=== PATIENT | male | born 1960 | race Asian ===

== ENCOUNTER 2021-10-07 10:30 | Inpatient (IN) ==
[2021-10-07] MEDS ORDERED: 0.9 % Sodium Chloride 1,000 ML ONE ×2 (10:54→12:10)
[2021-10-07] MEDS ORDERED: ISOVUE-370 200 ML INFUS..BTL ONE ×2 (11:43→12:11)
[2021-10-07] MEDS ORDERED: Naloxone 0.4 MG/ML INJ IVP PRN (12:00)
[2021-10-07] MEDS ORDERED: Perflutren Lipid Microsphere 1.3 ML in 0.9 % Sodium Chloride 8.7 ML IVP PRN (12:00)
[2021-10-07] MEDS ORDERED: *HR* FentaNYL (PF) 100 MCG/2 ML VIAL ONE (12:10)
[2021-10-07] MEDS ORDERED: *HR* Midazolam HCl 2 MG/2 ML VIAL ONE (12:10)
[2021-10-07] MEDS ORDERED: *HR* Heparin 10,000 UNIT/10 ML VIAL ONE (12:11)
[2021-10-07] MEDS ORDERED: Heparin 1,000 UNITS/500 mL 500 ML ONE (12:11)
[2021-10-07] MEDS ORDERED: Nitroglycerin 1,000 MCG/5 ML VIAL IV ONE (12:11)
[2021-10-07 13:53] LABS: Estimated Average Glucose 146 mg/dl; Hemoglobin A1C 6.7 %
[2021-10-07] MEDS: *HR* Heparin 5,000 UNIT/ML VIAL SQ SCH (16:56)
[2021-10-07] MEDS: *HR* Ticagrelor 90 MG TABLET PO SCH (20:10)
[2021-10-08 01:06] LABS: White Blood Count 11.4 K/mcL (4.3-11.1)
[2021-10-08 01:07] LABS: Basophils % 0.3 %; Eosinophils # 0.2 K/mcL (0.0-0.6); Eosinophils % 1.3 %; Hematocrit 42.6 % (37.5-50.1); Hemoglobin 14.3 g/dL (12.9-16.9); Immature Granulocytes % 0.3 % (0-4); Lymphocytes # 1.6 K/mcL (0.6-4.6); Lymphocytes % 13.5 %; Mean Corpuscular HGB Conc 33.6 g/dL (31.6-35.5); Mean Corpuscular Hemoglobin 28.4 pg (28.0-33.3); Mean Corpuscular Volume 84.7 fL (83.0-100.0); Mean Platelet Volume 9.8 fL (9.4-12.4); Monocytes # 1.1 K/mcL (0.0-1.3); Monocytes % 9.9 %; Neutrophils # 8.6 K/mcL (1.6-8.9); Platelet Count 227 K/mcL (140-400); Red Blood Count 5.03 M/mcL (4.19-5.50); Red Cell Distribution Width 12.8 % (11.5-14.5); Segmented Neutrophils % 74.7 %
[2021-10-08 01:28] LABS: BUN/Creatinine Ratio 8 (6-26); Blood Urea Nitrogen 7 mg/dL (8-23); Calcium 8.8 mg/dL (8.6-10.3); Carbon Dioxide 27 mEq/L (23-29); Chloride 104 mEq/L (98-107); Chol/HDL Ratio 6.2 (0-4.9); Cholesterol 237 mg/dL (< 200); Glucose 125 mg/dL (70-105); HDL Cholesterol 38 mg/dL (40-59); LDL Cholesterol,Calculated 173 mg/dL (< 100); Osmolality,Calculated 283 (280-300); Potassium 3.3 mEq/L (3.5-5.1); Sodium 137 mEq/L (136-145); Triglycerides 130 mg/dL (< 150); eGFR For African Americans > 60 (> 60); eGFR For Non-African Americans > 60 (> 60)
[2021-10-08] MEDS: *HR* Heparin 5,000 UNIT/ML VIAL SQ SCH ×2 (05:42→17:36)
[2021-10-08] MEDS: Aspirin 81 MG TAB.CHEW PO SCH (09:08)
[2021-10-08] MEDS: *HR* Ticagrelor 90 MG TABLET PO SCH ×2 (09:09→20:18)
[2021-10-09 03:04] LABS: Basophils % 0.5 %; Eosinophils # 0.3 K/mcL (0.0-0.6); Eosinophils % 3.1 %; Hematocrit 45.1 % (37.5-50.1); Hemoglobin 15.1 g/dL (12.9-16.9); Immature Granulocytes % 0.2 % (0-4); Lymphocytes # 1.8 K/mcL (0.6-4.6); Lymphocytes % 21.1 %; Mean Corpuscular HGB Conc 33.5 g/dL (31.6-35.5); Mean Corpuscular Hemoglobin 28.3 pg (28.0-33.3); Mean Corpuscular Volume 84.6 fL (83.0-100.0); Mean Platelet Volume 10.1 fL (9.4-12.4); Monocytes # 0.9 K/mcL (0.0-1.3); Monocytes % 10.6 %; Neutrophils # 5.4 K/mcL (1.6-8.9); Platelet Count 223 K/mcL (140-400); Red Blood Count 5.33 M/mcL (4.19-5.50); Red Cell Distribution Width 12.9 % (11.5-14.5); Segmented Neutrophils % 64.5 %; White Blood Count 8.4 K/mcL (4.3-11.1)
[2021-10-09 03:16] LABS: BUN/Creatinine Ratio 14 (6-26); Blood Urea Nitrogen 14 mg/dL (8-23); Calcium 9.4 mg/dL (8.6-10.3); Carbon Dioxide 25 mEq/L (23-29); Chloride 105 mEq/L (98-107); Glucose 154 mg/dL (70-105); Osmolality,Calculated 288 (280-300); Potassium 3.8 mEq/L (3.5-5.1); Sodium 137 mEq/L (136-145); eGFR For African Americans > 60 (> 60); eGFR For Non-African Americans > 60 (> 60)
[2021-10-09] MEDS: *HR* Heparin 5,000 UNIT/ML VIAL SQ SCH (05:08)
[2021-10-09] MEDS: Aspirin 81 MG TAB.CHEW PO SCH (07:40)
[2021-10-09 11:27] VITALS: TEMP 97.5; O2SAT 100
[2021-10-09 12:16] VITALS: BP 100/55; PULSE 63
== END 2021-10-09 12:16 | disposition home or self-care (01) | DRG 247 ==
LOC: 2NNU 11:21
PROVIDERS: ADMIT Internal Medicine Cardiovascular Disease; ATTEND Internal Medicine Cardiovascular Disease